=== PATIENT | female | born 1940 | race Asian ===

== ENCOUNTER 2018-08-14 12:53 | Emergency (ER) | payer MEDICARE, MEDICAID ==
[~2018-08-14] VITALS: Ht 152.4 cm; Wt 63.0 kg
[2018-08-14 13:02] VITALS: BP 153/74
[2018-08-14] MEDS ORDERED: LIDOCAINE 1% INJ 50 ML MDV IJ ONE (14:31)
[2018-08-14] MEDS ORDERED: LIDOCAINE HCL/PF 1% 30 ML SDV IJ ONE (15:30)
== END 2018-08-14 15:20 | disposition home or self-care (01) ==
LOC: ER 13:02
DX: S01.511A Laceration without foreign body of lip, initial encounter (principal); S01.111A Laceration without foreign body of right eyelid and periocular area, initial encounter; S50.311A Abrasion of right elbow, initial encounter; E11.9 Type 2 diabetes mellitus without complications; R51 Headache; W01.198A Fall on same level from slipping, tripping and stumbling with subsequent striking against other object, initial encounter; Y93.89 Activity, other specified; Y92.89 Other specified places as the place of occurrence of the external cause; Y99.8 Other external cause status
CPT/HCPCS: 12011; 70450; 70486; 73080; 99284; A6402; J3490